=== PATIENT | male | born 2000 | race Caucasian/White ===

== ENCOUNTER 2018-09-07 12:08 | Emergency (ER) | payer BC, SELFPAY ==
--- NOTE | 2018-09-09 19:01 | EKG ---
Test Reason : ER INDICAITON Blood Pressure : / mmHG Vent. Rate : 069 BPM Atrial Rate : 069 BPM P-R Int : 154 ms QRS Dur : 094 ms QT Int : 412 ms P-R-T Axes : 053 055 050 degrees QTc Int : 441 ms Normal sinus rhythm Normal ECG Confirmed by RIGO DEXTER, BRENNAN Espinal ([id number]), index editor KIMBERLY SMITH ([id number]) on 09/09/2018 7:00:49 PM Referred By: CATHRYN Confirmed By:BRENNAN SIERRA MD
== END 2018-09-07 15:06 | disposition home or self-care (01) ==
LOC: ERS 12:08
DX: F14.10 Cocaine abuse, uncomplicated (principal); F41.9 Anxiety disorder, unspecified; F32.9 Major depressive disorder, single episode, unspecified
CPT/HCPCS: 93005